=== PATIENT | male | born 1970 | race Caucasian/White ===

== ENCOUNTER → 2018-05-21 | Outpatient (CLI) | payer OTHER ==
[~2018-05-21] MED LIST: BACTROBAN OINT22 GM PO; CIPRO500 MG PO; HYDROCODONE BIT1 T11 PO
== END | disposition home or self-care (01) ==
LOC: US 10:30
DX: N50.3 Cyst of epididymis (principal); M96.0 Pseudarthrosis after fusion or arthrodesis; N43.3 Hydrocele, unspecified; M54.9 Dorsalgia, unspecified; G89.29 Other chronic pain; M54.5 Low back pain

== ENCOUNTER 2022-12-22 17:40 | Emergency (ER) | payer OTHER ==
[~2022-12-22] VITALS: Ht 180.3 cm; Wt 56.7 kg
[2022-12-22 18:19] LABS: HEMATOCRIT 38.1 % (42.0-52.0); MEAN CELL VOLUME 97.4 fl (80.0-94.0); MEAN CORPUSCULAR HGB 34.5 pg (27.0-31.0); MEAN CORPUSCULAR HGB CONC 35.4 g/dl (33.0-37.0); MEAN PLATELET VOLUME 9.8 fl (9.6-12.3); PLATELET COUNT AUTOMATED 267 10*3/uL (130-400); RED BLOOD COUNT 3.91 10*6/uL (4.50-5.90); RED CELL DISTRI WIDTH 13.4 % (0-14.5); WHITE BLOOD COUNT 11.7 10*3/uL (4.8-10.8)
[2022-12-22 18:46] LABS: MANUAL DIFF REFLEX YES
[2022-12-22 18:51] LABS: PLATELET SUFFICIENCY NORMAL (NORMAL); TOTAL CELLS COUNTED 100 #CELLS
[2022-12-22 18:52] LABS: ALKALINE PHOSPHATASE 111 U/L (46-116); BUN 16 mg/dl (9-23); CHLORIDE 101 mmol/L (98-107); POLYCHROMASIA SLIGHT; POTASSIUM 2.9 mmol/L (3.4-5.1); SGPT/ALT 40 U/L (10-49); TOTAL PROTEIN 6.9 gm/dL (6.0-8.0)
== END 2022-12-22 21:17 | disposition short-term general hospital (02) ==
LOC: ED 17:40
PROVIDERS: Nurse Practitioner Family
DX: S42.032A Displaced fracture of lateral end of left clavicle, initial encounter for closed fracture (principal); S05.12XA Contusion of eyeball and orbital tissues, left eye, initial encounter; S40.012A Contusion of left shoulder, initial encounter; S05.11XA Contusion of eyeball and orbital tissues, right eye, initial encounter; J93.9 Pneumothorax, unspecified; Y08.89XA Assault by other specified means, initial encounter; Y93.89 Activity, other specified; Y92.89 Other specified places as the place of occurrence of the external cause; Y99.8 Other external cause status

== ENCOUNTER 2023-02-01 20:22 | Emergency (ER) | payer OTHER ==
[~2023-02-01] VITALS: Wt 63.5 kg
[2023-02-01 20:40] LABS: BASO # 0.1 10*3/uL (0.0-0.1); BASO % 1.9 % (0.0-1.0); EOS % 0.2 % (1.0-4.0); HEMATOCRIT 35.1 % (42.0-52.0); LYMPH # 1.1 10*3/uL (1.3-4.4); LYMPH % 24.5 % (27.0-41.0); MEAN CELL VOLUME 98.9 fl (80.0-94.0); MEAN CORPUSCULAR HGB 33.8 pg (27.0-31.0); MEAN CORPUSCULAR HGB CONC 34.2 g/dl (33.0-37.0); MEAN PLATELET VOLUME 9.5 fl (9.6-12.3); MONO # 0.6 10*3/uL (0.1-1.0); NEUT # 2.5 10*3/uL (2.3-7.9); NEUT % 59.2 % (47.0-73.0); PLATELET COUNT AUTOMATED 220 10*3/uL (130-400); RED BLOOD COUNT 3.55 10*6/uL (4.50-5.90); RED CELL DISTRI WIDTH 15.4 % (0-14.5); WHITE BLOOD COUNT 4.3 10*3/uL (4.8-10.8)
[2023-02-01 21:33] LABS: ALKALINE PHOSPHATASE 192 U/L (46-116); BUN 11 mg/dl (9-23); CHLORIDE 106 mmol/L (98-107); POTASSIUM 3.6 mmol/L (3.4-5.1); SGPT/ALT 244 U/L (10-49); TOTAL PROTEIN 5.8 gm/dL (6.0-8.0)
[2023-02-01 21:35] LABS: ETHYL ALCOHOL 382.9 mg/dl (<3)
== END 2023-02-02 11:02 | disposition home or self-care (01) ==
LOC: ED
PROVIDERS: Nurse Practitioner Family
DX: S00.93XA Contusion of unspecified part of head, initial encounter (principal); W01.10XA Fall on same level from slipping, tripping and stumbling with subsequent striking against unspecified object, initial encounter; Y93.89 Activity, other specified; Y92.89 Other specified places as the place of occurrence of the external cause; Y99.8 Other external cause status; Z79.899 Other long term (current) drug therapy

== ENCOUNTER 2023-02-26 14:10 | Emergency (ER) | payer MEDICAID ==
[~2023-02-26] VITALS: Ht 180.3 cm; Wt 63.5 kg
== END 2023-02-26 15:25 | disposition left against medical advice (07) ==
LOC: ED 14:10
DX: R60.0 Localized edema (principal); F10.10 Alcohol abuse, uncomplicated

== ENCOUNTER 2023-08-22 17:12 | Emergency (ER) | payer MEDICAID ==
[~2023-08-22] VITALS: Ht 172.7 cm; Wt 76.7 kg
[2023-08-22] MEDS ORDERED: methylPREDNISolone sod succ 125 MG VIAL IM ONE (17:35)
[2023-08-22] MEDS ORDERED: ACETAMINOPHEN 325 MG TAB PO ONE (19:50)
== END 2023-08-22 20:00 | disposition home or self-care (01) ==
LOC: ED 17:12
DX: S22.42XA Multiple fractures of ribs, left side, initial encounter for closed fracture (principal); L25.9 Unspecified contact dermatitis, unspecified cause; F10.10 Alcohol abuse, uncomplicated; W19.XXXA Unspecified fall, initial encounter; Y93.67 Activity, basketball; Y92.310 Basketball court as the place of occurrence of the external cause; Y99.8 Other external cause status